=== PATIENT | female | born 2000 | race Caucasian/White ===

== ENCOUNTER 2020-12-23 11:13 | Emergency (ER) | payer BC ==
[2020-12-23 11:43] VITALS: BP 125/86; PULSE 75
--- NOTE | 2020-12-23 12:05 | EDM.PDOC ---
ED HPI GENERAL MEDICAL PROBLEM - General Chief Complaint: Trauma Stated Complaint: RT ARM AND HEAD INJURY Time Seen by Provider: 12/23/20 11:30 - History of Present Illness INITIAL COMMENTS - FREE TEXT/NARRATIVE: 20-year-old female presents the emergency room after being thrown off a horse landing on her head and right shoulder. The patient had no loss of consciousness she is acting normal no nausea or vomiting no headache. Her neck is not sore. Her right shoulder however is very sore as is her upper arm down to her elbow. Because of pain in the upper arm the patient does not want to move her elbow. She can supinate and pronate her forearm without too much difficulty she can move her digits in her hand. Patient denies any other injury associated with this most unfortunate event. - Related Data Allergies Allergy/AdvReac Type Severity Reaction Status Date / Time amoxicillin Allergy Vomiting Verified 12/23/20 11:45 Home Meds: Home Meds Control 1 tab PO DAILY 10/06/14 [History] Ibuprofen [Motrin] 400 mg PO ONCALL PRN 10/06/14 [History] Past Medical History - Past Health History Medical/Surgical History: Denies Medical/Surgical History Cardiovascular History: Reports: None Respiratory History: Reports: None Gastrointestinal History: Reports: None Genitourinary History: Reports: None [employer] History: Reports: None Musculoskeletal History: Reports: Other (See Below) Other Musculoskeletal History: finger fx 2014 without surgery Neurological History: Reports: None Psychiatric History: Reports: None Endocrine/Metabolic History: Reports: None Hematologic History: Reports: None Immunologic History: Reports: None Oncologic (Cancer) History: Reports: None Dermatologic History: Reports: None - Infectious Disease History Infectious Disease History: Reports: None - Past Surgical History Head Surgeries/Procedures: Reports: None HEENT Surgical History: Reports: Oral Surgery Oncologic Surgical History: Reports: None Social & Family History - Family History Family Medical History: No Pertinent Family History Cardiac: Reports: Prior Cardiac Arrest Respiratory: Reports: COPD Neurological: Reports: CVA - Tobacco Use Tobacco Use Status *Q: Light Tobacco User Years of Tobacco use: 1 Packs/Tins Daily: 0.5 Month/Year Tobacco Last Used: 2020 1/2 pack daily - Caffeine Use Caffeine Use: Reports: Coffee, Soda - Alcohol Use Days Per Week of Alcohol Use: 2 Number of Drinks Per Day: 3 Total Drinks Per Week: 6 - Recreational Drug Use Recreational Drug Use: No - Living Situation & Occupation Living situation: Reports: Single, with Family Occupation: Student Review of Systems - Review of Systems Review Of Systems: See Below Constitutional: Reports: No Symptoms Eyes: Reports: No Symptoms Ears: Reports: No Symptoms Nose: Reports: No Symptoms Mouth/Throat: Reports: No Symptoms Respiratory: Reports: No Symptoms Cardiovascular: Reports: No Symptoms GI/Abdominal: Reports: No Symptoms Genitourinary: Reports: No Symptoms Musculoskeletal: Reports: Other (Right arm and shoulder pain). Denies: Neck Pain Neurological: Denies: Confusion, Dizziness, Headache, Difficulty Walking, Weakness ED EXAM, GENERAL - Physical Exam Exam: See Below Exam Limited By: No Limitations General Appearance: Alert, No Apparent Distress Eye Exam: Bilateral Eye: Normal Inspection, PERRL Ears: Normal External Exam, Normal Canal, Hearing Grossly Normal, Normal TMs Nose: Normal Inspection, Normal Mucosa, No Blood Throat/Mouth: Normal Inspection, Normal Lips, Normal Teeth, Normal Gums, Normal Oropharynx, Normal Voice, No Airway Compromise Head: Atraumatic, Normocephalic Neck: Normal Inspection, Supple, Non-Tender, Full Range of Motion. No: Limited Range of Motion, Lymphadenopathy (L), Lymphadenopathy (R), Tender Lateral, Tender Midline Respiratory/Chest: No Respiratory Distress, Lungs Clear, Normal Breath Sounds, Other (No chest wall tenderness with palpation) Cardiovascular: Regular Rate, Rhythm, No Edema, No Murmur GI/Abdominal: Normal Bowel Sounds, Soft, Non-Tender, Pelvis Stable Back Exam: Normal Inspection. No: CVA Tenderness (L), CVA Tenderness (R), Vertebral Tenderness Extremities: Normal Inspection, No Pedal Edema, Other (Right shoulder is exquisitely tender she will not move it hardly at all. Flexion extension at the elbow causes severe pain and this is hardly move. Supination pronation is fairly well intact in the forearm. Neurovascular status of the hand is normal.) Neurological: Alert Course - Vital Signs Last Recorded V/S: Last Vital Signs Temp 36.6 C 12/23/20 11:40 Pulse 75 12/23/20 11:40 Resp 18 12/23/20 11:40 BP 125/86 12/23/20 11:40 Pulse Ox - Orders/Labs/Meds Orders: Active Orders 24 hr Category Date Time Status Elbow Min 3V Lt [CR] Stat Exams 12/23/20 12:02 Ordered Humerus Rt [CR] Stat Exams 12/23/20 12:02 Ordered Shoulder Comp Rt [CR] Stat Exams 12/23/20 12:02 Ordered - Re-Assessments/Exams Free Text/Narrative Re-Assessment/Exam: 12/23/20 12:34 X-ray examination of the shoulder and elbow did include all of the humerus. No acute fracture dislocation identified. The patient will be placed in a sling to minimize further injury and stabilize what most likely represents a significant soft tissue injury. And she is advised to follow-up with orthopedics. Departure - Departure Time of Disposition: 12:35 Disposition: Home, Self-Care 01 Clinical Impression: Right shoulder injury - Discharge Information Referrals: Ana Henriquez MD [Primary Care Provider] - Raymundo Akins MD [Physician] - Forms: ED Department Discharge Additional Instructions: Return to the emergency room with any questions problems or worsening symptoms. Wear the sling at all times. Tylenol and/or Motrin as needed for pain. Follow-up with Dr. Akins at orthopedics. Call [phone] to schedule. If you are doing well you can also follow-up with your regular physician. Sepsis Event Note (ED) - Focused Exam Vital Signs: Vital Signs Temp Pulse Resp BP 12/23/20 11:40 36.6 C 75 18 125/86 - My Orders Last 24 Hours: My Active Orders 12/23/20 12:02 Elbow Min 3V Lt [CR] Stat Humerus Rt [CR] Stat Shoulder Comp Rt [CR] Stat - Assessment/Plan Last 24 Hours: My Active Orders 12/23/20 12:02 Elbow Min 3V Lt [CR] Stat Humerus Rt [CR] Stat Shoulder Comp Rt [CR] Stat
--- NOTE | 2020-12-23 14:12 | CR ---
Right shoulder: 3 views of the right shoulder are obtained. Comparison: No previous shoulder study is available. Glenohumeral joint and acromioclavicular joint appears within normal limits. No fracture, dislocation or other bony abnormality is appreciated. Impression: 1. Nothing acute is seen on 3 view right shoulder study. Diagnostic code #1
--- NOTE | 2020-12-23 14:24 | CR ---
Right elbow: 4 views of the right elbow were obtained. Comparison: No prior elbow study is available. Joint spaces within the elbow are maintained. No acute fracture, dislocation or other bony abnormality is appreciated. No joint effusion is seen. Impression: 1. Nothing acute is appreciated on right elbow study. Diagnostic code #1
== END 2020-12-23 13:00 | disposition home or self-care (01) ==
LOC: JD.ED 11:13
DX: S49.91XA Unspecified injury of right shoulder and upper arm, initial encounter (principal); F17.210 Nicotine dependence, cigarettes, uncomplicated; Z88.0 Allergy status to penicillin; V80.010A Animal-rider injured by fall from or being thrown from horse in noncollision accident, initial encounter
CPT/HCPCS: 73030-26-RT; 73030-RT; 73080-26-RT; 73080-RT; 99282; 99283-25

== ENCOUNTER 2021-05-31 00:07 | Emergency (ER) | payer SELFPAY ==
[2021-05-31 00:24] VITALS: BP 138/92; PULSE 100
[2021-05-31] MEDS ORDERED: Ondansetron 4 MG Tab.DIS PO ONE (00:42)
[2021-05-31] MEDS ORDERED: Ketorolac 15 MG/ML SDV IM ONE (00:42)
== END 2021-05-31 01:42 | disposition home or self-care (01) ==
LOC: JD.ED 00:07
DX: J06.9 Acute upper respiratory infection, unspecified (principal); Z88.0 Allergy status to penicillin; Z20.822 Contact with and (suspected) exposure to COVID-19
CPT/HCPCS: 87635; 87651; 96372; 99283; A9270; J1885; 99284; U0002

== ENCOUNTER 2023-04-19 16:08 | Emergency (ER) | payer BC ==
[2023-04-19] MEDS ORDERED: Sodium Chloride 0.9% 10 ML Syringe FLUSH PRN (16:43)
[2023-04-19] MEDS ORDERED: Sodium Chloride 0.9% 1,000 ML IV SCH ×2 (16:45→18:15)
[2023-04-19] MEDS ORDERED: Ondansetron 4 MG/2 ML SDV IVPUSH ONE (16:48)
[2023-04-19 17:26] LABS: BASOPHILS PERCENT AUTO 0.2 % (0.0-1.0); EOSINOPHILS PERCENT AUTO 0.1 % (0.0-6.0); HEMATOCRIT 39.6 % (37.0-47.0); IMMATURE GRAN ABSOLUTE AUTO 0.09 K/mm3 (0.00-0.05); IMMATURE GRAN PERCENT AUTO 0.6 % (0.0-0.4); LYMPHOCYTES ABSOLUTE AUTO 0.5 K/mm3 (1.0-4.8); LYMPHOCYTES PERCENT AUTO 3.2 % (24.0-44.0); MEAN CORPUSCULAR HGB CONC 35.4 g/dl (32.0-36.0); MEAN CORPUSCULAR VOLUME 87.8 fl (83.0-99.0); MEAN PLATELET VOLUME 9.6 fl (9.4-12.3); MONOCYTES ABSOLUTE AUTO 0.3 K/mm3 (0.0-0.8); MONOCYTES PERCENT AUTO 1.6 % (0.0-8.0); NEUTROPHILS ABSOLUTE AUTO 14.8 K/mm3 (1.8-7.7); NEUTROPHILS PERCENT AUTO 94.3 % (41.0-71.0); PLATELET COUNT,PLT 288 K/mm3 (150-400); RED BLOOD CELL COUNT 4.51 M/mm3 (4.10-5.30); WHITE BLOOD CELL COUNT,WBC 15.69 K/mm3 (3.9-11.3)
[2023-04-19 17:42] LABS: CORONAVIRUS COVID-19 NAA POSITIVE (NEGATIVE); INFLUENZA A NAA NEGATIVE (NEGATIVE)
[2023-04-19 17:51] LABS: A/G RATIO 0.9 (1-2); ALANINE AMINOTRANSFERASE,ALT 11 U/L (14-59); ALBUMIN 3.5 g/dl (3.4-5.0); ALKALINE PHOSPHATASE 42 U/L (46-116); ANION GAP 17.6 (5-15); ASPARTATE AMNIOTRANSFERASE,AST 9 U/L (15-37); BILIRUBIN TOTAL 0.6 mg/dL (0.2-1.0); BLOOD UREA NITROGEN,BUN 9 mg/dL (7-18); CALCIUM 9.1 mg/dL (8.5-10.1); CARBON DIOXIDE,CO2 22 mEq/L (21-32); CHLORIDE,CL 105 mEq/L (98-107); CREATININE 0.5 mg/dL (0.55-1.02); ESTIMATED GFR 135 mL/min (>60); GLUCOSE RANDOM 100 mg/dL (70-99); LIPASE 15 U/L (16-77); POTASSIUM,K 3.6 mEq/L (3.5-5.1); PROTEIN TOTAL,TP 7.3 g/dl (6.4-8.2); SODIUM,NA 141 mEq/L (136-145)
[2023-04-19 20:14] LABS: APPEARANCE,URINE CLEAR (Clear); COLOR,URINE YELLOW (Yellow)
[2023-04-19 20:15] LABS: BILIRUBIN,URINE 1+ (Negative); GLUCOSE,URINE NEGATIVE (Negative); KETONES,URINE 4+ (Negative); NITRITE,URINE NEGATIVE (Negative); OCCULT BLOOD,URINE TRACE-INTACT (Negative); PH,URINE 5.5 (5.0-8.0); PROTEIN,URINE TRACE (Negative); UROBILINOGEN,URINE 0.2 (0.2-1.0)
[2023-04-19 20:16] LABS: LEUKOCYTE ESTERASE,URINE NEGATIVE (Negative)
[2023-04-19 20:21] LABS: BACTERIA,URINE FEW /hpf (FEW); MUCUS,URINE MODERATE /hpf (FEW); RBC,URINE 0-5 /hpf (0-5); WBC,URINE 0-5 /hpf (0-5)
[2023-04-19 21:18] VITALS: BP 124/62; PULSE 111
== END 2023-04-19 20:43 | disposition home or self-care (01) ==
LOC: JD.ED 16:08
DX: U07.1 COVID-19 (principal); Z86.16 Personal history of COVID-19; Z88.1 Allergy status to other antibiotic agents
CPT/HCPCS: 0240U; 36415; 80053; 81001; 83690; 85025; 96361; 96374; 99284; J2405; J3490; J7030

== ENCOUNTER 2023-09-15 05:19 | Inpatient (IN) | payer BC ==
[~2023-09-15 05:19] MED LIST: Bupivacaine 0.25% 10 ML SDV ONE; ePHEDrine 50 MG/ML SDV ONE
[2023-09-15] MEDS ORDERED: Lidocaine 1% 50 ML MDV INJECT PRN (19:09)
[2023-09-15] MEDS ORDERED: Calcium Carbonate 500 MG Tab.Chew PO PRN (19:09)
[2023-09-15] MEDS ORDERED: Misoprostol 25 MCG (1/4 of 100 MCG) Tab VAG PRN (19:09)
[2023-09-15] MEDS ORDERED: Nalbuphine 10 MG/ML Syringe IVPUSH PRN (19:09)
[2023-09-15] MEDS ORDERED: Acetaminophen 325 MG Tab PO PRN (19:09)
[2023-09-15 20:09] LABS: BASOPHILS ABSOLUTE AUTO 0.1 K/mm3 (0.0-0.2); BASOPHILS PERCENT AUTO 0.5 % (0.0-1.0); EOSINOPHILS ABSOLUTE AUTO 0.1 K/mm3 (0.0-0.4); EOSINOPHILS PERCENT AUTO 0.4 % (0.0-6.0); HEMATOCRIT 33.8 % (37.0-47.0); HEMOGLOBIN 11.5 gm/dl (12.0-16.0); IMMATURE GRAN ABSOLUTE AUTO 0.39 K/mm3 (0.00-0.05); IMMATURE GRAN PERCENT AUTO 2.3 % (0.0-0.4); LYMPHOCYTES ABSOLUTE AUTO 2.6 K/mm3 (1.0-4.8); LYMPHOCYTES PERCENT AUTO 15.8 % (24.0-44.0); MEAN CORPUSCULAR HEMOGLOBIN 30.6 pg (28.0-32.0); MEAN CORPUSCULAR VOLUME 89.9 fl (83.0-99.0); MEAN PLATELET VOLUME 10.9 fl (9.4-12.3); MONOCYTES ABSOLUTE AUTO 0.9 K/mm3 (0.0-0.8); MONOCYTES PERCENT AUTO 5.2 % (0.0-8.0); NEUTROPHILS ABSOLUTE AUTO 12.7 K/mm3 (1.8-7.7); NEUTROPHILS PERCENT AUTO 75.8 % (41.0-71.0); PLATELET COUNT,PLT 300 K/mm3 (150-400); RED BLOOD CELL COUNT 3.76 M/mm3 (4.10-5.30); WHITE BLOOD CELL COUNT,WBC 16.69 K/mm3 (3.9-11.3)
[2023-09-15 20:24] LABS: CREATININE 0.6 mg/dL (0.55-1.02); EST CRCL DRUG DOSING (CG) 109.1 mL/min; URIC ACID 4.7 mg/dL (2.6-6.0)
[2023-09-15] MEDS: Lactated Ringers 1,000 ML IV SCH (20:26)
[2023-09-15] MEDS: Ampicillin 2 GM in Sodium Chloride 0.9% 100 ML IV ONE (21:15)
[2023-09-15] MEDS: Oxytocin/Lactated Ringers 30 UNIT/500 ML BAG IV SCH (21:22)
[2023-09-15 21:33] LABS: CREATININE,URINE RAND 111.3 mg/dL (30.0-125.0); PROTEIN CREATININE RATIO,URINE 173.4 mg/g (0-149); PROTEIN,URINE RANDOM 19.3 mg/dL (0.0-11.8)
[2023-09-15] MEDS: Misoprostol 25 MCG (1/4 of 100 MCG) Tab VAG ONE (23:20)
[2023-09-16] MEDS ORDERED: Ampicillin 1 GM in Sodium Chloride 0.9% 100 ML IV SCH
[2023-09-16] MEDS: Ampicillin 1 GM in Sodium Chloride 0.9% 100 ML IV SCH (00:52)
[2023-09-16] MEDS ORDERED: ePHEDrine 50 MG/ML SDV IVPUSH PRN (07:15)
[2023-09-16] MEDS ORDERED: diphenhydrAMINE 50 MG/ML SDV IVPUSH PRN (07:15)
[2023-09-16] MEDS: Misoprostol 25 MCG (1/4 of 100 MCG) Tab VAG ONE (12:44)
[2023-09-16] MEDS: Bupivacaine/fentaNYL/NS 100 ML Bag EPIDUR PRN (19:42)
[2023-09-16] MEDS: fentaNYL 100 MCG/2 ML SDV EPIDUR PRN (19:42)
[2023-09-16] MEDS: Ondansetron 4 MG/2 ML SDV IVPUSH PRN (20:07)
[2023-09-17] MEDS: Oxytocin/Lactated Ringers 30 UNIT/500 ML BAG IV SCH (06:00)
[2023-09-17] MEDS ORDERED: Benzocaine/Menthol 20%-0.5% Spray 78 GM Cannister TOP PRN (06:46)
[2023-09-17] MEDS ORDERED: Witch Hazel Medicated Pads 40/Jar TOP PRN (06:46)
[2023-09-17] MEDS: Ibuprofen 600 MG Tab PO SCH (07:56)
[2023-09-19 14:37] VITALS: BP 138/88; PULSE 78
== END 2023-09-19 11:45 | disposition home or self-care (01) | DRG 560 ==
LOC: JD.OB 05:19 → OBSVTOIN 09-17 05:19 → JD.OB 09-17 05:20
PROVIDERS: ADMIT Obstetrics & Gynecology; ATTEND Obstetrics & Gynecology
PROC: 10E0XZZ Delivery of Products of Conception, External Approach (ICD-10-PCS; principal; 2023-09-17)
PROC: 10907ZC Drainage of Amniotic Fluid, Therapeutic from Products of Conception, Via Natural or Artificial Opening (ICD-10-PCS; 2023-09-17)
PROC: 3E0P7VZ Introduction of Hormone into Female Reproductive, Via Natural or Artificial Opening (ICD-10-PCS; 2023-09-17)
PROC: 3E033VJ Introduction of Other Hormone into Peripheral Vein, Percutaneous Approach (ICD-10-PCS; 2023-09-17)
PROC: 0KQM0ZZ Repair Perineum Muscle, Open Approach (ICD-10-PCS; 2023-09-17)
PROC: 3E0R3BZ Introduction of Anesthetic Agent into Spinal Canal, Percutaneous Approach (ICD-10-PCS; 2023-09-17)
PROC: 00HU33Z Insertion of Infusion Device into Spinal Canal, Percutaneous Approach (ICD-10-PCS; 2023-09-17)
DX: O13.4 Gestational [pregnancy-induced] hypertension without significant proteinuria, complicating childbirth (principal); Z37.0 Single live birth; O99.824 Streptococcus B carrier state complicating childbirth; O70.1 Second degree perineal laceration during delivery; Z88.0 Allergy status to penicillin; Z86.16 Personal history of COVID-19; Z98.890 Other specified postprocedural states; Z3A.37 37 weeks gestation of pregnancy
CPT/HCPCS: 36415; 51702; 59025; 59409; 82565; 82570; 83615; 84156; 84450; 84460; 84520; 84550; 85025; 86592; A9270-GY; J0290; J0665; J2405; J3010; J3490; J7120; J7999

== ENCOUNTER 2024-06-13 07:33 | Emergency (ER) | payer BC ==
[2024-06-13] MEDS: Sodium Chloride 0.9% 1,000 ML IV ONE (08:38)
[2024-06-13 08:41] LABS: BASOPHILS PERCENT AUTO 0.5 % (0.0-1.0); EOSINOPHILS ABSOLUTE AUTO 0.2 K/mm3 (0.0-0.4); EOSINOPHILS PERCENT AUTO 2.4 % (0.0-6.0); HEMATOCRIT 40.1 % (37.0-47.0); HEMOGLOBIN 13.4 gm/dl (12.0-16.0); IMMATURE GRAN ABSOLUTE AUTO 0.07 K/mm3 (0.00-0.05); IMMATURE GRAN PERCENT AUTO 0.8 % (0.0-0.4); LYMPHOCYTES ABSOLUTE AUTO 1.2 K/mm3 (1.0-4.8); LYMPHOCYTES PERCENT AUTO 13.6 % (24.0-44.0); MEAN CORPUSCULAR HEMOGLOBIN 29.8 pg (28.0-32.0); MEAN CORPUSCULAR HGB CONC 33.4 g/dl (32.0-36.0); MEAN CORPUSCULAR VOLUME 89.3 fl (83.0-99.0); MEAN PLATELET VOLUME 9.8 fl (9.4-12.3); MONOCYTES ABSOLUTE AUTO 0.7 K/mm3 (0.0-0.8); MONOCYTES PERCENT AUTO 7.6 % (0.0-8.0); NEUTROPHILS ABSOLUTE AUTO 6.5 K/mm3 (1.8-7.7); NEUTROPHILS PERCENT AUTO 75.1 % (41.0-71.0); PLATELET COUNT,PLT 290 K/mm3 (150-400); RED BLOOD CELL COUNT 4.49 M/mm3 (4.10-5.30); WHITE BLOOD CELL COUNT,WBC 8.69 K/mm3 (3.9-11.3)
[2024-06-13] MEDS: Ketorolac 30 MG/ML SDV IVPUSH ONE (09:03)
[2024-06-13 09:04] LABS: A/G RATIO 0.9 (1-2); ALBUMIN 3.6 g/dl (3.4-5.0); ANION GAP 10.7 (5-15); BILIRUBIN TOTAL 0.3 mg/dL (0.2-1.0); BUN/CREATININE RATIO 5.7 (14-18); CALCIUM 8.9 mg/dL (8.5-10.1); CREATININE 0.7 mg/dL (0.55-1.02); EST CRCL DRUG DOSING (CG) 93.51 mL/min; POTASSIUM,K 3.7 mEq/L (3.5-5.1); PROTEIN TOTAL,TP 7.5 g/dl (6.4-8.2)
[2024-06-13 10:03] VITALS: BP 131/102; PULSE 99
== END 2024-06-13 09:47 | disposition home or self-care (01) ==
LOC: JD.ED 07:33
DX: J10.1 Influenza due to other identified influenza virus with other respiratory manifestations (principal); Z86.16 Personal history of COVID-19; Z79.899 Other long term (current) drug therapy; Z88.0 Allergy status to penicillin
CPT/HCPCS: 36415; 80053; 85025; 87428; 96361; 96374; 99284; J1885; J7030; 99283

== ENCOUNTER 2025-02-05 10:40 | Emergency (ER) | payer BC ==
[2025-02-05 11:00] VITALS: PULSE 88
[2025-02-05] MEDS ORDERED: Sodium Chloride 0.9% 10 ML Syringe FLUSH PRN (11:01)
[2025-02-05] MEDS: Ondansetron 4 MG/2 ML SDV IVPUSH ONE (12:02)
[2025-02-05 12:19] LABS: BASOPHILS ABSOLUTE AUTO 0.0 K/mm3 (0.0-0.2); BASOPHILS PERCENT AUTO 0.4 % (0.0-1.0); EOSINOPHILS ABSOLUTE AUTO 0.0 K/mm3 (0.0-0.4); EOSINOPHILS PERCENT AUTO 0.3 % (0.0-6.0); IMMATURE GRAN ABSOLUTE AUTO 0.03 K/mm3 (0.00-0.05); IMMATURE GRAN PERCENT AUTO 0.4 % (0.0-0.4); LYMPHOCYTES ABSOLUTE AUTO 2.0 K/mm3 (1.0-4.8); LYMPHOCYTES PERCENT AUTO 25.6 % (24.0-44.0); MEAN PLATELET VOLUME 9.6 fl (9.4-12.3); MONOCYTES ABSOLUTE AUTO 0.6 K/mm3 (0.0-0.8); MONOCYTES PERCENT AUTO 7.4 % (0.0-8.0); NEUTROPHILS ABSOLUTE AUTO 5.1 K/mm3 (1.8-7.7); NEUTROPHILS PERCENT AUTO 65.9 % (41.0-71.0); NRBC ABSOLUTE 0.00 (0.00-0.02); NRBC PERCENT 0.0 % (0.0-0.2); PLATELET COUNT,PLT 285 K/mm3 (150-400); RED BLOOD CELL COUNT 4.89 M/mm3 (4.10-5.30); WHITE BLOOD CELL COUNT,WBC 7.73 K/mm3 (3.9-11.3)
[2025-02-05 13:05] LABS: A/G RATIO 1.1 (1-2); ALANINE AMINOTRANSFERASE,ALT 18.0 U/L (14-59); ASPARTATE AMNIOTRANSFERASE,AST 15.0 U/L (15-37); BILIRUBIN TOTAL 0.5 mg/dL (0.2-1.0); BLOOD UREA NITROGEN,BUN 9.0 mg/dL (7-18); CARBON DIOXIDE,CO2 27.0 mEq/L (21-32); CHLORIDE,CL 103.0 mEq/L (98-107); CREATININE 0.6 mg/dL (0.55-1.02); EST CRCL DRUG DOSING (CG) 108.16 mL/min; ESTIMATED GFR 128.0 mL/min (>60); GLUCOSE RANDOM 84.0 mg/dL (70-99); PROTEIN TOTAL,TP 7.9 g/dl (6.4-8.2); SODIUM,NA 139.0 mEq/L (136-145)
[2025-02-05 13:09] LABS: HCG QUANTITATIVE 95549.0 mIU/mL
[2025-02-05 13:10] LABS: POTASSIUM,K 4.5 mEq/L (3.5-5.1)
[2025-02-05 13:49] LABS: APPEARANCE,URINE CLEAR (Clear); GLUCOSE,URINE NEGATIVE (Negative); OCCULT BLOOD,URINE TRACE-INTACT (Negative)
[2025-02-05 15:21] VITALS: BP 118/76
== END 2025-02-05 15:21 | disposition home or self-care (01) ==
LOC: JD.ED 10:40
DX: O99.611 Diseases of the digestive system complicating pregnancy, first trimester (principal); K80.50 Calculus of bile duct without cholangitis or cholecystitis without obstruction; Z86.16 Personal history of COVID-19; Z88.0 Allergy status to penicillin; Z79.899 Other long term (current) drug therapy; Z3A.01 Less than 8 weeks gestation of pregnancy
CPT/HCPCS: 36415; 76705; 76817; 80053; 81001; 83690; 84702; 85025; 86850; 86900; 86901; 96361; 96374; 99284; J2405; J7030; 99283